=== PATIENT | female | born 1990 | race Caucasian/White ===

== ENCOUNTER 2021-05-24 21:14 | Emergency (ER) | payer OTHER ==
[~2021-05-24] VITALS: Ht 162.6 cm; Wt 62.6 kg
[~2021-05-24 21:14] MED LIST: FOLIC ACID0.4 MG; PRENATAL1 TAB
[2021-05-24] MEDS ORDERED: ZITHROMAX500 MG PO (23:25)
[2021-05-24] MEDS ORDERED: MEDROLPACK PO (23:25)
[2021-05-24] MEDS ORDERED: TUSNEL LIQUID178 ML PO (23:25)
== END 2021-05-25 00:32 | disposition home or self-care (01) ==
LOC: ER 21:14
DX: J06.9 Acute upper respiratory infection, unspecified (principal); B96.0 Mycoplasma pneumoniae [M. pneumoniae] as the cause of diseases classified elsewhere; J40 Bronchitis, not specified as acute or chronic